=== PATIENT | male | born 1980 | race Caucasian/White ===

== ENCOUNTER 2019-07-01 10:36 | Emergency (ER) | payer OTHER ==
--- NOTE | 2019-07-01 10:42 | ERPHSYRPT ---
- History of Present Illness Time Seen by Provider: 07/01/19 10:41 Historian: patient Exam Limitations: no limitations Physician History: This is a 38-year-old white male who is on no medications and has no known drug allergies and presents with intermittent chest pain. Chest pain has been intermittent over the last several days. He arrives with no complaints of chest pain but is concerned about the episodes he has had recently. Pain is described of midline upper substernal without radiation. Pain was described as sharp. He has no shortness of breath he has no abdominal pain he has no heartburn symptoms. Timing/Duration: day(s) (Intermittently over several days) Activities at Onset: none Quality: sharpness Location: substernal Chest Pain Radiation: no radiation Severity of Pain-Max: mild Severity of Pain-Current: none Modifying Factors: Improves With: nothing Associated Symptoms: denies symptoms Prior Chest Pain/Cardiac Workup: no prior chest pain, no prior cardiac workup Nitro Today/Relief: no nitro taken today Aspirin Treatment Today: no aspirin today Travel Risk - International Travel Have you traveled outside of the country in past 3 weeks: No Have you or anyone close to you been diagnosed with or: No Do your reside in a community with a known COVID-19 case?: Yes If Yes where:: [facility] - Coronavirus Screening Has patient experienced Coronavirus symptoms: No - Review of Systems Constitutional: No Symptoms Eyes: No Symptoms Ears, Nose, & Throat: No Symptoms Respiratory: No Symptoms Cardiac: Chest Pain (Patient arrives with no chest pain now but has had intermittent chest pain for the last several days) Abdominal/Gastrointestinal: No Symptoms Genitourinary Symptoms: No Symptoms Musculoskeletal: No Symptoms Skin: No Symptoms Neurological: No Symptoms Psychological: No Symptoms Endocrine: No Symptoms Hematologic/Lymphatic: No Symptoms Immunological/Allergic: No Symptoms All Other Systems: Reviewed and Negative - Past Medical History Pertinent Past Medical History: Yes Neurological History: No Pertinent History ENT History: No Pertinent History Cardiac History: No Pertinent History Respiratory History: No Pertinent History Endocrine Medical History: No Pertinent History Musculoskeletal History: No Pertinent History GI Medical History: No Pertinent History History: No Pertinent History Psycho-Social History: No Pertinent History Male Reproductive Disorders: No Pertinent History - Past Surgical History Past Surgical History: No Neuro Surgical History: No Pertinent History Cardiac: No Pertinent History Respiratory: No Pertinent History Gastrointestinal: No Pertinent History Genitourinary: No Pertinent History Musculoskeletal: No Pertinent History Male Surgical History: No Pertinent History - Nursing Vital Signs Nursing Vital Signs: Initial Vital Signs Temperature 98.6 F 07/01/19 10:41 Pulse Rate 78 07/01/19 10:41 Blood Pressure 139/89 07/01/19 10:41 O2 Sat by Pulse Oximetry 99 07/01/19 10:41 Pain Scale Pain Intensity 0 - Physical Exam General Appearance: no apparent distress, alert, anxiety Eye Exam: PERRL/EOMI, eyes nml inspection Ears, Nose, Throat Exam: normal ENT inspection, moist mucous membranes Neck Exam: normal inspection, non-tender, supple, full range of motion Respiratory Exam: normal breath sounds, lungs clear, airway intact, No chest tenderness, No respiratory distress Cardiovascular Exam: regular rate/rhythm, normal heart sounds, normal peripheral pulses Gastrointestinal/Abdomen Exam: soft, normal bowel sounds, No tenderness, No guarding, No rebound Back Exam: normal inspection, normal range of motion, No CVA tenderness, No vertebral tenderness Extremity Exam: normal inspection, normal range of motion, pelvis stable Neurologic Exam: alert, oriented x 3, cooperative, 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 I do not appreciate that on this EKG) Ordered Tests: Active Orders 24 hr Category Date Time Status [employer] STAT Care 07/01/19 10:56 Active EKG-ER Only STAT Care 07/01/19 10:55 Active EKG-ER Only STAT Care 07/01/19 13:53 Active IV Insertion STAT Care 07/01/19 10:55 Active Pulse Oximetry (ED) STAT Care 07/01/19 10:55 Active CHEST 1 VIEW (PORTABLE) Stat Exams 07/01/19 10:56 Completed CHEST WITH CONTRAST [CT] Stat Exams 07/01/19 11:58 Completed CBC W DIFF Stat Lab 07/01/19 11:00 Completed CMP Stat Lab 07/01/19 11:00 Completed D-DIMER QUANTITATIVE Stat Lab 07/01/19 11:00 Completed NT PRO BNP Stat Lab 07/01/19 11:00 Completed PROTIME WITH INR Stat Lab 07/01/19 11:00 Completed TROPONIN Q3H Lab 07/01/19 11:00 Completed TROPONIN Q3H Lab 07/01/19 14:08 Received TROPONIN Q3H Lab 07/01/19 17:00 Ordered TROPONIN Q3H Lab 07/01/19 20:00 Ordered TROPONIN Q3H Lab 07/01/19 23:00 Ordered Medication Summary Generic Name Dose Route Start Last Admin Trade Name Freq PRN Reason Stop Dose Admin Sodium Chloride 1,000 mls @ 100 mls/hr 07/01/19 12:00 07/01/19 12:17 Sodium Chloride 0.9% 1000 Ml IV 07/31/19 11:59 100 mls/hr .Q10H GLADYS Administration Discontinued Medications Generic Name Dose Route Start Last Admin Trade Name Freq PRN Reason Stop Dose Admin Aspirin 324 mg 07/01/19 10:55 07/01/19 11:01 Baby Aspirin 81 Mg Chew PO 07/01/19 10:56 324 mg STAT ONE Administration Lab/Rad Data: Laboratory Result Diagrams 07/01/19 11:00 07/01/19 11:00 Laboratory Results 07/01/19 07/01/19 07/01/19 Range/Units 11:00 11:00 11:00 WBC (4.0-10.5) K/mm3 RBC (4.1-5.6) M/mm3 Hgb (12.5-18.0) gm/dl Hct (42-50) % MCV (78-100) fl MCH (26-32) pg MCHC (32-36) g/dl RDW (11.5-14.0) % Plt Count (150-450) K/mm3 MPV (7.5-11.0) fl Gran % (36.0-66.0) % Eos # (Auto) (0-0.5) Absolute Lymphs (auto) (1.0-4.6) Absolute Monos (auto) (0.0-1.3) Lymphocytes % (24.0-44.0) % Monocytes % (0.0-12.0) % Eosinophils % (0.00-5.0) % Basophils % (0.0-0.4) % Absolute Granulocytes (1.4-6.9) Basophils # (0-0.4) PT 12.7 (8.83-12.87) SECONDS INR 1.12 (0.8-3.0) D-Dimer 840 H* (215-500) ng/mL Sodium 141 (137-145) mmol/L Potassium 3.7 (3.5-5.1) mmol/L Chloride 105 (98-107) mmol/L Carbon Dioxide 27 (22-30) mmol/L Anion Gap 12.4 (5-15) MEQ/L BUN 12 (9-20) mg/dL Creatinine 0.89 (0.66-1.25) mg/dL Estimated GFR > 60.0 ML/MIN Glucose 101 (74-106) mg/dL Calcium 9.3 (8.4-10.2) mg/dL Total Bilirubin 0.70 (0.2-1.3) mg/dL AST 24 (17-59) U/L ALT 25 (0-50) U/L Alkaline Phosphatase 40 (38-126) U/L Troponin I < 0.012 (0.000-0.034) ng/mL NT-Pro-B Natriuret Pep 66.4 (0-450) pg/mL Serum Total Protein 7.7 (6.3-8.2) g/dL Albumin 4.5 (3.5-5.0) g/dL 07/01/19 Range/Units 11:00 WBC 8.1 (4.0-10.5) K/mm3 RBC 4.73 (4.1-5.6) M/mm3 Hgb 15.5 (12.5-18.0) gm/dl Hct 45.3 (42-50) % MCV 95.8 (78-100) fl MCH 32.8 H (26-32) pg MCHC 34.2 (32-36) g/dl RDW 12.9 (11.5-14.0) % Plt Count 274 (150-450) K/mm3 MPV 12.3 H (7.5-11.0) fl Gran % 70.6 H (36.0-66.0) % Eos # (Auto) 0.22 (0-0.5) Absolute Lymphs (auto) 1.39 (1.0-4.6) Absolute Monos (auto) 0.75 (0.0-1.3) Lymphocytes % 17.1 L (24.0-44.0) % Monocytes % 9.2 (0.0-12.0) % Eosinophils % 2.7 (0.00-5.0) % Basophils % 0.4 (0.0-0.4) % Absolute Granulocytes 5.74 (1.4-6.9) Basophils # 0.03 (0-0.4) PT (8.83-12.87) SECONDS INR (0.8-3.0) D-Dimer (215-500) ng/mL Sodium (137-145) mmol/L Potassium (3.5-5.1) mmol/L Chloride (98-107) mmol/L Carbon Dioxide (22-30) mmol/L Anion Gap (5-15) MEQ/L BUN (9-20) mg/dL Creatinine (0.66-1.25) mg/dL Estimated GFR ML/MIN Glucose (74-106) mg/dL Calcium (8.4-10.2) mg/dL Total Bilirubin (0.2-1.3) mg/dL AST (17-59) U/L ALT (0-50) U/L Alkaline Phosphatase (38-126) U/L Troponin I (0.000-0.034) ng/mL NT-Pro-B Natriuret Pep (0-450) pg/mL Serum Total Protein (6.3-8.2) g/dL Albumin (3.5-5.0) g/dL - Progress Progress: improved Air Movement: good Progress Note: 07/01/19 11:17 Medical decision making this patient underwent an EKG (12-lead) at 1045. The computer read out states that there is an acute inferior infarct with ST elevation and says can consider anterior lateral injury. However when I reviewed this EKG I do not appreciate any acute ST elevation. We therefore, repeated an EKG (12-lead) at 1059 the reading is similar on the computer. However, I do not appreciate any ST elevation on this EKG. I am sending this EKG to [facility] for an emergent read. We will provide the patient with aspirin x4 (baby aspirin). The patient states he has no chest pain whatsoever and there is no shortness of air. 07/01/19 11:34 Patient still has no chest pain. We sent the 2 EKGs that were performed here at this hospital to Dr. Cid, the emergency room physician at [facility] emergency department. He reviewed the EKGs as well. He also does not see an acute event/ST elevation on the EKG sent to him. The patient does not have any chest pain at this time. We will wait for the troponin levels and then keep him here for minimum of 3 hours and repeat the EKG as well as troponin levels at 3 hours his initial troponin level is normal. If his initial troponin level is elevated we will send him to Dr. Cid at [facility] emergency department. 07/01/19 11:45 07/01/19 11:53 X-ray of the chest reveals no acute pulmonary or intrathoracic process 07/01/19 13:55 The CTA of the chest reveals no pneumonia and no pulmonary emboli present. There is no acute intra-thoracic process 07/01/19 14:42 I spoke with the teacher aide Dr. Whiteside. The patient's history, laboratory and EKG findings with him. Additionally, I reviewed the CTA chest results with him. I texted of the patient's EKGs to him. The teacher aide recommends that the patient come in for 24-hour observation with serial EKGs and troponin levels. I agree with this plan. Cardiology said that he would be available if the patient is admitted into follow-up in [facility] and as needed acutely. I reviewed the plan with the patient. However, the patient declines to be admitted or transferred into another facility. Patient feels that his risk is low. I reviewed the risks of worsening symptoms and possible . Patient states that he declines admission and transfer and will return to the emergency department if he has significant chest pain. At this time, the patient has no chest pain. Patient will sign the AGAINST MEDICAL ADVICE form Blood Culture(s) Obtained: No Antibiotics given: No Counseled pt/family regarding: lab results, diagnosis, need for follow-up, rad results - Departure Departure Disposition: AMA Clinical Impression: Chest pain Condition: Stable Critical Care Time: Yes Referrals: JH FUNEZ [Primary Care Provider] - Additional Instructions: Return to the emergency department immediately if symptoms occur or worsen. Follow-up tomorrow with your primary care physician for further management. Forms: Work/School Release Form
[2019-07-01] MEDS ORDERED: BABY ASPIRIN 81 MG CHEW PO ONE (10:55)
[2019-07-01 11:28] LABS: Absolute Neutrophil Ct (ANC) 5.74 (1.4-6.9); BASOPHIL % 0.4 % (0.0-0.4); Basophil (Absolute #) 0.03 (0-0.4); Eosinophil % 2.7 % (0.00-5.0); Eosinophil (Absolute #) 0.22 (0-0.5); Hematocrit 45.3 % (42-50); Hemoglobin 15.5 gm/dl (12.5-18.0); Lymphocyte (Absolute #) 1.39 (1.0-4.6); Lymphocytes % 17.1 % (24.0-44.0); Mean Cell Volume 95.8 fl (78-100); Mean Corpuscular Hemoglobin 32.8 pg (26-32); Mean Corpuscular Hgb Concent. 34.2 g/dl (32-36); Mean Platelet Volume 12.3 fl (7.5-11.0); Monocyte (Absolute #) 0.75 (0.0-1.3); Monocytes % 9.2 % (0.0-12.0); Neutrophil % 70.6 % (36.0-66.0); Platelet Count 274 K/mm3 (150-450); Red Blood Count 4.73 M/mm3 (4.1-5.6); Red Cell Distribution Width 12.9 % (11.5-14.0); White Blood Count 8.1 K/mm3 (4.0-10.5)
[2019-07-01 11:32] LABS: INR 1.12 (0.8-3.0); PROTIME 12.7 SECONDS (8.83-12.87)
--- NOTE | 2019-07-01 11:39 | XRAY ---
Indication: Chest pain. Comparison: None Portable chest demonstrates normal heart, lungs, and bony thorax with incidental right base calcified granuloma.
[2019-07-01 11:46] LABS: ALBUMIN 4.5 g/dL (3.5-5.0); ALKALINE PHOSPHATASE 40 U/L (38-126); ANION GAP 12.4 MEQ/L (5-15); BLOOD UREA NITROGEN 12 mg/dL (9-20); CHLORIDE 105 mmol/L (98-107); Calcium 9.3 mg/dL (8.4-10.2); Carbon Dioxide 27 mmol/L (22-30); Creatinine 1 0.89 mg/dL (0.66-1.25); Glucose 101 mg/dL (74-106); NT PRO BNP 66.4 pg/mL (0-450); Potassium 3.7 mmol/L (3.5-5.1); SGOT/AST 24 U/L (17-59); SGPT/ALT 25 U/L (0-50); SODIUM 141 mmol/L (137-145); Total Protein 7.7 g/dL (6.3-8.2)
[2019-07-01] MEDS ORDERED: Sodium Chloride 0.9% 1000 ML 1,000 ML IV SCH (12:00)
[2019-07-01 12:08] VITALS: O2SAT 98
[2019-07-01] MEDS ORDERED: Sodium Chloride 0.9% 1000 ML 1,000 ML ONE (12:14)
--- NOTE | 2019-07-01 13:03 | XRAY ---
Indication: Chest pain and elevated d-dimer. Multiple contiguous axial images obtained through the chest using 100 cc Isovue 370 contrast and PE protocol. Comparison: None There is adequate opacification of the pulmonary arteries to include the lobar branches. Suboptimal opacification of the segmental branches. No pulmonary embolus. Heart is not enlarged. Aorta is normal in course and caliber. No pathologic mediastinal/hilar lymphadenopathy. Lungs are inflated and clear. Bony thorax intact. Limited upper abdomen unremarkable. Impression: Negative pulmonary embolus. No acute cardiopulmonary abnormalities.
[2019-07-01 15:02] VITALS: BP 119/79; PULSE 61
== END 2019-07-01 15:15 | disposition home or self-care (01) ==
LOC: ED 10:36
DX: R07.9 Chest pain, unspecified (principal)
CPT/HCPCS: 36000; 36415; 71045; 71260; 80053; 83880; 84484; 85025; 85379; 85610; 93005; 93041; 94760; 96360; 96361; 99284; A9270-GY